=== PATIENT | female | born 1995 | race Caucasian/White ===

== ENCOUNTER 2016-12-22 | Inpatient (IN) | payer BC, SELFPAY ==
[2016-12-22] MEDS ORDERED: LR / Pitocin 40 units/1000 ml 1,000 ML IV PRN (01:23)
[2016-12-22] MEDS ORDERED: Promethazine HCl 25 MG/ML VIAL IM PRN (01:23)
[2016-12-22] MEDS ORDERED: Lidocaine 1% (PF) 30 ML VIAL SC PRN (01:23)
[2016-12-22] MEDS ORDERED: HYDROcodone/Acetaminophen 5/325 mg Tablet PO PRN ×4 (01:23→11:40)
[2016-12-22] MEDS ORDERED: Ibuprofen 800 MG TAB PO PRN (01:23)
[2016-12-22] MEDS ORDERED: Ondansetron HCl/PF 4 MG/2 ML Vial IVP PRN ×2 (01:23→11:40)
[2016-12-22 01:24] VITALS: BMI 22.3
[2016-12-22 02:33] LABS: Hematocrit 37.2 % (36.0-47.0); Mean Platelet Volume 6.8 fL (7.4-10.4); Red Blood Cell (RBC) Count 3.98 mill/uL (4.20-5.40); White Blood Cell (WBC) Count 14.1 thou/uL (4.8-10.8)
[2016-12-22] MEDS: Lactated Ringer's 1,000 ML IV SCH ×2 (05:52→12:22)
--- NOTE | 2016-12-22 08:01 | HP ---
DATE OF ADMISSION: 12/22/2016 TIME OF ADMISSION: 0115 hours. This is the patient of Dr. Rosa Isela Hansen. REASON FOR ADMISSION: Spontaneous onset of labor. This is a courtesy admission note since this is a direct admission to Dr. Hansen. HISTORY OF PRESENT ILLNESS: In brief, this is a 21-year-old G2, P1, at 40 weeks' and 5 days, who ar rived with the complaint of contractions. She was seen yesterday (Saturday) in the office by Dr. Natalie luu who evaluated her and called her 5 cm. Today, she is now 5 cm on evaluation in triage. She den ies trauma, fevers, or any other complications. PAST MEDICAL HISTORY: Otherwise, negative. ALLERGIES: None. PAST SURGICAL HISTORY: Noncontributory. OB HISTORY: Significant for prior vaginal . REVIEW OF SYSTEMS: Complete review of systems was checked and is otherwise negative unless specifie d in the HPI. PHYSICAL EXAMINATION: VITAL SIGNS: Her blood pressure is 116/71 and pulse is 100. GENERAL: Clinically, she is in no acute distress. ABDOMEN: Size is consistent with dates. Estimated weight is approximately 6-1/2 po unds. On cervical exam, she is 5 cm dilated, 50% effaced, -1 station. monitor; heart t ones are in the 130s to 140s with moderate variability. Contractions are about every 2 to 3 minutes on tocodynamometer. The patient has elected intermittent monitoring at her request. ASSESSMENT: This is a G2, P1 at 40 weeks', patient of Dr. Hansen, with early labor. She is 5 cm. She is GBS negative. PLAN: 1. Dr. Hansen has been notified by the phone with a voice message being left. The patient's nurse was also called Dr. Hansen, and we are awaiting verification of her acknowledgement. 2. Admit to Labor and Delivery. 3. Routine pain medicine. 4. Routine labor care.
--- NOTE | 2016-12-22 08:10 | PDOC.LDPN ---
Labor & Delivery Progress Note - Subjective Subjective: painful contractions - Objective Vital signs reviewed and normal: yes General: NAD Uterine fundus: non tender Dilation: 8 Effacement: 90% Station: 0 FHT: category 1 AROM: clear fluid - Assessment (1) Term delivered Code(s): O80 - ENCOUNTER FOR FULL-TERM UNCOMPLICATED DELIVERY Current Visit: No Status: Acute Plan: continue plan of care
--- NOTE | 2016-12-22 09:15 | PDOC.OPDEL ---
OB Operative/Delivery Note Delivery Dr/Surgeon: Jade Assist: n/a Pre-Delivery Diagnosis: active labor Procedure/Post Delivery Dx: spontaneous vaginal delivery Weeks gestation: 40 Anesthesia: local - Findings A Sex: male Weight: 8 lb 12 oz - 5 min: 9 - 10 min: 9 - Additional Findings/Plan Placenta delivered: spontaneous Repaired Obstetrical Laceration: 1st degree (repaired with 2-0 vicryl for hemostasis) Estimated blood loss: 300 Compilations/Other Findings: NC x 1, reduced Post delivery plan: routine recovery
[2016-12-22] MEDS ORDERED: Benzocaine/Menthol 20-0.5% 60 ML CAN TOP PRN (11:40)
[2016-12-22] MEDS ORDERED: LR / Pitocin 40 units/1000 ml 1,000 ML IV SCH (11:40)
[2016-12-22] MEDS ORDERED: Adacel (T-DAP) 0.5 ML VIAL IM ONE (11:40)
[2016-12-22] MEDS ORDERED: Bisacodyl 10 MG SUPP PR PRN (11:40)
[2016-12-22] MEDS ORDERED: Preparation H Ointment 28 GM TUBE PR PRN (11:40)
[2016-12-22] MEDS ORDERED: diphenhydrAMINE HCl 25 MG CAP PO PRN (11:40)
[2016-12-22] MEDS ORDERED: Milk Of Magnesia 30 ML UDCUP PO PRN (11:40)
[2016-12-22] MEDS ORDERED: Lanolin Ointment 7 GM TUBE TOP PRN (11:40)
[2016-12-22] MEDS: Ferrous Sulfate 325 MG TAB PO SCH (14:58)
[2016-12-22] MEDS: Ibuprofen 800 MG TAB PO SCH ×2 (16:03→23:15)
[2016-12-22] MEDS: Docusate (Surfak) 240 MG CAP PO SCH (21:13)
[2016-12-23] MEDS: Ibuprofen 800 MG TAB PO SCH ×2 (05:50→14:15)
[2016-12-23 08:24] VITALS: BP 99/58; TEMP 97.6
[2016-12-23] MEDS: Ferrous Sulfate 325 MG TAB PO SCH (08:47)
[2016-12-23] MEDS: Docusate (Surfak) 240 MG CAP PO SCH (08:47)
[2016-12-23] MEDS ORDERED: Prenatal Vitamin 1 TAB PO SCH (09:00)
== END 2016-12-23 16:10 | disposition home or self-care (01) | DRG 775 ==
LOC: L&D/OP → L&D 01:49 → 3SW 11:51
PROVIDERS: ADMIT Student in an Organized Health Care Education/Training Program; ATTEND Student in an Organized Health Care Education/Training Program
PROC: 10E0XZZ Delivery of Products of Conception, External Approach (ICD-10-PCS; principal; 2016-12-22)
PROC: 0HQ9XZZ Repair Perineum Skin, External Approach (ICD-10-PCS; 2016-12-22)
DX: O70.0 First degree perineal laceration during delivery (principal); O69.81X0 Labor and delivery complicated by cord around neck, without compression, not applicable or unspecified; Z3A.40 40 weeks gestation of pregnancy; Z37.0 Single live birth
CPT/HCPCS: 85027; 86780; 87340; 90715; J2001

== ENCOUNTER 2017-02-27 14:43 | Outpatient (CLI) | payer BC ==
--- NOTE | 2017-02-27 15:56 | ULT ---
RIGHT BREAST ULTRASOUND: Comparison: None. History: Palpable mass in the right breast in the past. Patient currently does not feel a mass. Technique: Multiplanar grayscale and color doppler images are obtained in a right breast ultrasound. FINDINGS: Dense breast parenchyma is seen. No fluid collection or mass is seen in the right breast. No suspicio us shadowing is present. IMPRESSION: BIRADS category 1 - negative. POS: [facility]
== END 2017-02-27 14:44 | disposition home or self-care (01) ==
LOC: ULT 14:43
PROVIDERS: ATTEND Advanced Practice Midwife
DX: N63.10 Unspecified lump in the right breast, unspecified quadrant (principal)

== ENCOUNTER 2018-12-12 13:47 | Outpatient (CLI) | payer OTHER ==
--- NOTE | 2018-12-12 15:41 | RAD ---
EXAM: LEFT RIBS TWO VIEWS CHEST ONE VIEW: 12/11/18 HISTORY: Chest wall deformity, bump on left side of sternum. FINDINGS: No evidence for acute rib fracture. No pneumothorax or pleural effusion. No evidence for other rib ab normality. No evidence for a bony mass seen. IMPRESSION: Unremarkable chest one view, left rib two views. RECOMMENDATION: If this palpable abnormality appears to be soft tissue, then I would recommend a follow-up chest MRI with and without contrast with the area marked. If this is felt to be more likely a bony abnormality, follow-up CT scan with the area marked is recommended for further assessment. POS: [facility]
== END 2018-12-12 13:48 | disposition home or self-care (01) ==
LOC: BICRAD 13:47
PROVIDERS: ATTEND Internal Medicine
DX: M95.4 Acquired deformity of chest and rib (principal)

== ENCOUNTER 2019-10-15 02:14 | Inpatient (IN) | payer OTHER ==
[2019-10-15 02:41] VITALS: BMI 23.6
[2019-10-15 03:10] LABS: #Lymphocytes 1.7 thou/uL (1.20-3.40); #Monocytes 0.9 thou/uL (0.11-0.59); #Neutrophils 6.7 thou/uL (1.40-6.50); %Basophils 0.5 % (0.0-1.0); %Eosinophils 0.5 % (0.0-10.0); %Lymphocytes 17.8 % (21.0-51.0); %Monocytes 9.9 % (0.0-10.0); %Neutrophils 71.3 % (42.0-75.0); Hemoglobin 12.3 g/dL (12.0-16.0); Mean Corpuscular HGB CONC 34.5 g/dL (32.0-36.0); Mean Corpuscular Hemoglobin 32.8 pg (27.0-31.0); Mean Corpuscular Volume 94.9 fL (78.0-98.0); Mean Platelet Volume 7.9 fL (7.4-10.4); Platelet Count 178 thou/uL (130-400); RBC Distribution Width 12.3 % (11.5-14.5); Red Blood Cell (RBC) Count 3.74 mill/uL (4.20-5.40); White Blood Cell (WBC) Count 9.3 thou/uL (4.8-10.8)
[2019-10-15] MEDS ORDERED: NS / Oxytocin 40 units/1000ml 1,000 ML ONE (03:14)
[2019-10-15] MEDS ORDERED: Lidocaine 1% (PF) 30 ML VIAL ONE (03:14)
[2019-10-15] MEDS ORDERED: Oxytocin 10 UNITS/ML VIAL ONE (03:14)
[2019-10-15] MEDS ORDERED: Ibuprofen 800 MG TAB PO PRN (03:29)
[2019-10-15] MEDS ORDERED: Methylergonovine 0.2 MG/ML VIAL IM PRN ×2 (03:29→09:12)
[2019-10-15] MEDS ORDERED: hydrALAZINE 20 MG/ML VIAL SLOW IVP PRN ×2 (03:29→09:12)
[2019-10-15] MEDS ORDERED: Promethazine HCl 25 MG/ML VIAL IM PRN (03:29)
[2019-10-15] MEDS ORDERED: Lidocaine 1% (PF) 30 ML VIAL SC PRN (03:29)
[2019-10-15] MEDS ORDERED: Ondansetron PF 4 MG/2 ML Vial IVP PRN (03:29)
[2019-10-15] MEDS ORDERED: HYDROcodone/Acetaminophen 5/325 mg Tablet PO PRN ×4 (03:29→09:12)
[2019-10-15] MEDS ORDERED: NS / Oxytocin 40 units/1000ml 1,000 ML IV PRN (03:29)
[2019-10-15] MEDS ORDERED: Lactated Ringer's 1,000 ML IV PRN (03:29)
[2019-10-15] MEDS ORDERED: Misoprostol 200 MCG TAB PR PRN (03:29)
[2019-10-15 03:48] LABS: HBSAg Index 0.17 S/CO (0-0.99); Hep B Surf Ag Non-Reactive S/CO (NonReactive); Syphilis Antibody Nonreactive (Nonreactive); Syphilis Antibody Index 0.09 S/CO (<1.00 Non-Reactive)
--- NOTE | 2019-10-15 03:54 | PDOC.LDHP ---
Labor and Delivery H&P Chief complaint: contractions HPI: patient started having strong, regular uterine contractions around 2230 on . Affirms movement. Denies LOF or vaginal bleeding Current gestational age (weeks): 41 Due date: 10/08/19 Dating criteria: last menstrual period Grav: 3 Para: 2 OB History Details: 2014 7.4 at 41 weeks 2017 at 40 weeks. 8lbs 12oz 2019 SAB 2020 current gestation Current complications: none Abnormal US findings: No Current medications: pre- vitamins Previous surgical history: other (wisdom tooth extraction) Allergies/Adverse Reactions: Allergies Allergy/AdvReac Type Severity Reaction Status Date / Time No Known Allergies Allergy Verified 01/20/15 19:34 Social history: none - Physical Exam General: breathing through contractions Lungs: nonlabored breathing Abdomen: gravid FHT: category 1 - Vaginal Exam cm dilated: 7 Effacement: 90% Station: 0 - OB Labs Blood type: O RH: positive Antibody Screen: negative HIV: negative RPR: negative HEPSAg: negative 1 hour GCT: negative GBS: negative Urine drug screen: negative Rubella: immune - Assessment L&D Assessment: term patient in labor - Plan Plan: admit to L&D, informed consent obtained
[2019-10-15 04:46] LABS: Hemoglobin 11.9 g/dL (12.0-16.0); Mean Corpuscular HGB CONC 32.2 g/dL (32.0-36.0); Mean Corpuscular Hemoglobin 30.4 pg (27.0-31.0); Mean Corpuscular Volume 94.5 fL (78.0-98.0); Mean Platelet Volume 7.7 fL (7.4-10.4); Platelet Count 189 thou/uL (130-400); RBC Distribution Width 12.2 % (11.5-14.5); White Blood Cell (WBC) Count 9.1 thou/uL (4.8-10.8)
[2019-10-15 05:25] LABS: Syphilis Antibody Nonreactive (Nonreactive); Syphilis Antibody Index 0.09 S/CO (<1.00 Non-Reactive)
[2019-10-15 05:28] LABS: HBSAg Index 0.14 S/CO (0-0.99); Hep B Surf Ag Non-Reactive S/CO (NonReactive)
--- NOTE | 2019-10-15 08:55 | PDOC.OPDEL ---
OB Operative/Delivery Note Delivery Dr/Surgeon: Light Pre-Delivery Diagnosis: active labor Procedure/Post Delivery Dx: spontaneous vaginal delivery Weeks gestation: 41 Anesthesia: none - Findings A Sex: female Weight: 8 lb 3 oz - 1 min: 6 - 5 min: 8 - Additional Findings/Plan Placenta delivered: spontaneous Repaired Obstetrical Laceration: none findings: other Estimated blood loss: 200mL Post delivery plan: routine recovery
[2019-10-15] MEDS ORDERED: Benzocaine-Menthol 82.5 ML CAN TOP PRN (09:12)
[2019-10-15] MEDS ORDERED: NS / Oxytocin 40 units/1000ml 1,000 ML IV SCH (09:12)
[2019-10-15] MEDS ORDERED: Adacel (T-DAP) 0.5 ML SYRINGE IM ONE (09:12)
[2019-10-15] MEDS ORDERED: Misoprostol 200 MCG TAB VAG PRN (09:12)
[2019-10-15] MEDS ORDERED: Measles/Mumps/Rubella 10 MCG/0.5 ML VIAL SC ONE (09:12)
[2019-10-15] MEDS ORDERED: Bisacodyl 10 MG SUPP PR PRN (09:12)
[2019-10-15] MEDS ORDERED: Milk Of Magnesia 30 ML UDCUP PO PRN (09:12)
[2019-10-15] MEDS ORDERED: Docusate Calcium (SURFAK) 240 MG CAP PO SCH (09:30)
[2019-10-15] MEDS ORDERED: Prenatal Vitamin 1 TAB PO SCH (09:30)
[2019-10-15] MEDS: Ibuprofen 800 MG TAB PO SCH ×2 (12:51→22:04)
[2019-10-15] MEDS: Ferrous Sulfate 325 MG TAB PO SCH (15:37)
[2019-10-15] MEDS: Docusate Calcium (SURFAK) 240 MG CAP PO SCH ×2 (21:21→22:05)
[2019-10-16] MEDS: Ibuprofen 800 MG TAB PO SCH (06:54)
[2019-10-16 08:22] VITALS: BP 105/65; TEMP 98.1
[2019-10-16] MEDS ORDERED: Prenatal Vitamin 1 TAB PO SCH (09:00)
[2019-10-16] MEDS: Ferrous Sulfate 325 MG TAB PO SCH (09:18)
[2019-10-16] MEDS: Docusate Calcium (SURFAK) 240 MG CAP PO SCH (09:18)
== END 2019-10-16 11:40 | disposition home or self-care (01) | DRG 807 ==
LOC: L&D/OP 02:14 → L&D-LIB 04:00 → 3SW 09:23
PROVIDERS: ADMIT Student in an Organized Health Care Education/Training Program; ATTEND Student in an Organized Health Care Education/Training Program
PROC: 10E0XZZ Delivery of Products of Conception, External Approach (ICD-10-PCS; principal; 2019-10-16)
DX: O80 Encounter for full-term uncomplicated delivery (principal); Z37.0 Single live birth; Z3A.41 41 weeks gestation of pregnancy
CPT/HCPCS: 36415; 85025; 86780; 86850; 86900; 86901; 87340; 99285; J2001; J2590